=== PATIENT | male | born 1955 | race Caucasian/White ===

== ENCOUNTER 2017-11-14 14:49 | Inpatient (IN) | payer OTHER ==
[~2017-11-14] VITALS: Ht 180.3 cm; Wt 89.0 kg
[2017-11-14 15:44] LABS: HEMATOCRIT 48.8 % (38.0-50.0); HEMOGLOBIN 17.6 G/DL (12.5-16.6); MCH 29.4 PG (29.0-34.0); MCHC 36.1 G/DL (30.0-36.0); MCV 81.5 FL (86-99); PLATELET COUNT 136 K/uL (156-360); RBC DIS.WIDTH-CV 12.5 % (11.8-14.6); RBC DIS.WIDTH-SD 36.8 % (39-53); RED BLOOD COUNT 5.99 M/uL (4.00-5.50); WHITE BLOOD COUNT 7.4 K/uL (4.1-10.2)
[2017-11-14 16:00] LABS: CHLORIDE 97 mEq/L (99-109); POTASSIUM 4.7 mEq/L (3.7-5.4); SODIUM 137 mEq/L (136-147)
[2017-11-14 16:01] LABS: GLUCOSE 292 mg/dL (70-99)
[2017-11-14 16:05] LABS: CREATININE 0.7 mg/dL (0.6-1.3); GFR ESTIMATE (CALCULATED) > 59 mL/min/ (58.99-99999)
[2017-11-14 16:06] LABS: UREA NITROGEN (BUN) 13 mg/dL (9-23)
[2017-11-14] MEDS ORDERED: ALEVE220 M2 PO (17:18)
[2017-11-14 20:34] LABS: HDL CHOLESTEROL 45 MG/DL (Desirable>=40); LDL CHOLESTEROL 152 mg/dL (Desirable<100); NON-HDL CHOLESTEROL 184 mg/dL (Desirable<160); TOTAL CHOLESTEROL 229 mg/dL (Desirable<200); TRIGLYCERIDES 162 MG/DL (Normal: <150)
[2017-11-14 21:30] LABS: APPEARANCE CLEAR ((CLEAR)); BILIRUBIN NEGATIVE; BLOOD NEGATIVE; COLOR YELLOW ((YELLOW)); GLUCOSE (STRIP) >=500; KETONES 20; LEUKOCYTES NEGATIVE; NITRITE NEGATIVE; PROTEIN (STRIP) NEGATIVE; SPECIFIC GRAVITY 1.026 (1.000-1.030); UCUL ADDED? NO; UROBILINOGEN 0.2 MG/DL (0.2-1.0)
[2017-11-15] VITALS (7 sets, daily range): BP systolic 127–167; BP diastolic 74–94
[2017-11-15 05:47] LABS: MCH 28.5 PG (29.0-34.0); MCHC 34.3 G/DL (30.0-36.0); PLATELET COUNT 127 K/uL (156-360); RBC DIS.WIDTH-CV 12.9 % (11.8-14.6); RBC DIS.WIDTH-SD 38.4 % (39-53)
[2017-11-15 05:48] LABS: HEMOGLOBIN 15.1 G/DL (12.5-16.6)
[2017-11-15 06:00] LABS: CHLORIDE 100 MEQ/L (99-109); CREATININE 0.6 MG/DL (0.6-1.3); GFR ESTIMATE (CALCULATED) > 59 mL/min/ (58.99-99999); GLUCOSE 342 mg/dL (70-99); POTASSIUM 4.2 MEQ/L (3.7-5.4); SODIUM 137 MEQ/L (136-147); UREA NITROGEN (BUN) 14 mg/dL (9-23)
[2017-11-15 10:48] LABS: HEMOGLOBIN A1c (GLYCOHEMOGLOB) 12.4 % (Below 5.7)
[2017-11-16 04:00] VITALS: BP 108/72
[2017-11-16 06:29] LABS: BASOPHIL (%) 0.4 % (0-1); EOSINOPHIL (%) 1.8 % (0-5); EOSINOPHIL COUNT 0.1 K/uL (0-0.3); HEMATOCRIT 43.1 % (38.0-50.0); HEMOGLOBIN 14.7 G/DL (12.5-16.6); IMMATURE GRANULOCYTE (%) 0.5 % (0.0-0.7); LYMPHOCYTE (%) 34.4 % (15-42); LYMPHOCYTE COUNT 1.9 K/uL (1.0-2.8); MCH 28.1 PG (29.0-34.0); MCHC 34.1 G/DL (30.0-36.0); MCV 82.4 FL (86-99); MONOCYTE (%) 10.1 % (3-12); MONOCYTE COUNT 0.6 K/uL (0-0.8); NEUTROPHIL (%) 52.8 % (45-76); NEUTROPHIL COUNT 2.9 K/uL (1.8-6.4); PLATELET COUNT 120 K/uL (156-360); RBC DIS.WIDTH-CV 12.6 % (11.8-14.6); RBC DIS.WIDTH-SD 37.9 % (39-53); RED BLOOD COUNT 5.23 M/uL (4.00-5.50); WHITE BLOOD COUNT 5.6 K/uL (4.1-10.2)
[2017-11-16 06:48] LABS: CHLORIDE 100 MEQ/L (99-109); CREATININE 0.6 MG/DL (0.6-1.3); GFR ESTIMATE (CALCULATED) > 59 mL/min/ (58.99-99999); GLUCOSE 273 mg/dL (70-99); POTASSIUM 3.7 MEQ/L (3.7-5.4); SODIUM 137 MEQ/L (136-147); UREA NITROGEN (BUN) 16 mg/dL (9-23)
[2017-11-16 07:27] VITALS: BP 119/77
[2017-11-16 11:19] VITALS: BP 136/90
[2017-11-16] MEDS ORDERED: ATORVASTATIN CA80 MG PO (11:38)
[2017-11-16] MEDS ORDERED: ASPIR-LOW81 MG PO (11:39)
[2017-11-16] MEDS ORDERED: LEVETIRACETAM750 MG PO (11:39)
[2017-11-16] MEDS ORDERED: METFORMIN HCL1000 MG PO (12:21)
[2017-11-16 19:32] VITALS: BP 129/80
[2017-11-17] VITALS (7 sets, daily range): BP systolic 122–158; BP diastolic 58–86
[2017-11-18 07:21] VITALS: BP 152/93
[2017-11-18] MEDS ORDERED: DIVALPROEX SOD500 MG PO (12:12)
[2017-11-18] MEDS ORDERED: LANTUS 10100 UNITS/ SC (12:12)
[2017-11-18 15:51] VITALS: BP 134/87
== END 2017-11-18 17:10 | disposition home health service (06) | DRG 65 ==
LOC: EME 14:49 → 5SOUTH 19:29 → EDOF 19:29 → ENRESERV 19:45 → 5SOUTH 21:00
PROVIDERS: Hospitalist; Physician Assistant
DX: I63.9 Cerebral infarction, unspecified (principal); F05 Delirium due to known physiological condition; G40.89 Other seizures; E11.65 Type 2 diabetes mellitus with hyperglycemia; E11.51 Type 2 diabetes mellitus with diabetic peripheral angiopathy without gangrene; E78.5 Hyperlipidemia, unspecified; G89.29 Other chronic pain; I10 Essential (primary) hypertension; I65.23 Occlusion and stenosis of bilateral carotid arteries; H53.8 Other visual disturbances; M25.551 Pain in right hip; R26.81 Unsteadiness on feet; M21.70 Unequal limb length (acquired), unspecified site; R26.0 Ataxic gait; Z87.891 Personal history of nicotine dependence; Z93.3 Colostomy status; Z92.21 Personal history of antineoplastic chemotherapy; Z90.49 Acquired absence of other specified parts of digestive tract; Z85.048 Personal history of other malignant neoplasm of rectum, rectosigmoid junction, and anus; Z79.4 Long term (current) use of insulin; Z80.8 Family history of malignant neoplasm of other organs or systems; Z82.49 Family history of ischemic heart disease and other diseases of the circulatory system; Z83.3 Family history of diabetes mellitus
CPT/HCPCS: 70450; 70544; 70549; 70551; 71046; 80048; 80061; 81003; 82948; 83036; 85025; 85027; 93005; 93880; 95819; 97530 GO; 99281; 99285; J1650; J1815; J7030